=== PATIENT | female | born 1980 | race Caucasian/White ===

== ENCOUNTER → 2016-12-07 | Outpatient (CLI) | payer OTHER ==
[~2016-12-07] MED LIST: AMOXICILLIN PO; BACTRIM DS TABL1 TA1 PO; COLACE PO; CORTISPORIN-TC10 M1 OT; DICLOFENAC PO; DIFLUCAN200 MG PO; DOXYCYCLINE PO; FLAGYL PO; IBUPROFEN PO; KEFLEX500 MG PO; LIDOCAINE HC20 MG/M1 MT; LORTAB ELIXIR15 ML PO; LOTRISONE CREAM45 GM TOP; PREPARATION H C26 GM RC; PROCTOFOAM-HC 110 GM MC; RONDEC-DM ORAL30 ML PO; SYNTHROID75 MCG PO; VALTREX PO; VITAMIN B12-FO1 EACH PO; VITAMIN C500 M1 PO; VITAMIN D350000 UNIT PO
--- NOTE | ~2016-12-07 | MR17 ---
[facility] A Service of [facility] & [facility] RADIOLOGY TEXT RESULTS PATIENT: LIAN BIANCHI LOCATION: [facility] : 82 UNIT #: [id number] AGE: [address]: Gerard Vogel II, MD SEX: F ORDER DR: [id number] [facility] [address] [place], [place] [address] [id number] O MR#: [id number] Acc #: [id number] NAME: LIAN BIANCHI : 1980 SEX: F STUDY DATE/TIME: 12/07/2016 8:39 UNIT: [facility] ROOM: STUDY DESCRIPTION: MR Brain WWo Contrast Attending Physician: Gerard Vogel II., M.D. Ordering Physician: Gerard Vogel II., M.D. Primary Care Physician: Harinder Dyer M.D. MRI CENTER REPORT This report is preliminary unless electronic signature is present. EXAM MRI of the brain with and without contrast, 12/07/2016 COMPARISON None. HISTORY Right arm pain, numbness and tingling for 4 months. Vertigo for 8 months and hearing loss in the left ear for 4 years. FINDINGS Multisequence multiplanar imaging of the brain was obtained with and without contrast. 16 mL of MultiHance was administered intravenously. Basal ganglia, brainstem and cerebellar hemispheres are within normal limits. There is an enhancing vessel in the left parietal lobe extending from the ventricle to the subcortical white matter. It is suspicious for a tiny developmental venous anomaly. No coexisting other vascular anomalies or other abnormalities are associated with it. There is a peripherally enhancing mucous retention small cyst in the inferior aspect of the left maxillary antrum. S-shaped nasal septal deviation is noted. Imaged orbits with the ocular structures are unremarkable. There is mild mucosal thickening in the right ethmoid sinus and severe mucosal thickening in the left mastoid air cells. S-shaped nasal septal deviation is noted. Thick slices through the sella with the pituitary gland, pineal region, upper cervical spine and internal auditory canals with the inner ear structures do not demonstrate any obvious abnormality. IMPRESSION 1. 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 It has no coexisting other vascular STS. [facility] A Service of [facility] & [facility] RADIOLOGY TEXT RESULTS PATIENT: LIAN BIANCHI LOCATION: [facility] [place] CAM[place]ST #: [id number] : [birth year] UNIT #: [id number] AGE: [address]: Gerard Vogel II, MD SEX: F ORDER DR: anomalies or other abnormality. 2. Severe left mastoid mucosal thickening. Correlate with possible mastoiditis. 3. Peripherally enhancing small mucous retention cyst in the floor of the left maxillary antrum is seen along with S-shaped nasal septal deviation. Dictated by... Lexis Funk M.D. THIS IS AN ELECTRONICALLY VERIFIED REPORT Lexis Funk M.D. at 12/08/2016 5:29 PM CPR/dedra TD: 12/08/2016 02:25 JOB #: [id number] MRI CENTER REPORT Page 1 of 1 COPY
== END | disposition home or self-care (01) ==
LOC: CMRI 07:26
DX: R20.0 Anesthesia of skin (principal); J34.89 Other specified disorders of nose and nasal sinuses
CPT/HCPCS: 70553; A9577